=== PATIENT | female | born 1950 | race Caucasian/White ===

== ENCOUNTER 2016-09-20 18:31 | Emergency (ER) | payer MEDICARE ==
[~2016-09-20] VITALS: Ht 157.5 cm; Wt 50.8 kg
[~2016-09-20 18:31] MED LIST: BUDEPRION XL300 MG PO; GABAPENTIN300 MG PO; KEFLEX500 MG PO; LISINOPRIL-HCT1 EACH PO; MELOXICAM15 MG PO; METHOCARBAMOL750 MG PO; NORCO 5-325 TA1 EACH PO; OSTERA TABLET1 EACH PO; PAROXETINE HCL20 MG PO; STOOL SOFTENER100 MG PO
== END 2016-09-20 20:23 | disposition left against medical advice (07) ==
LOC: ED 18:31
DX: T14.91 Suicide attempt (principal); Z00.8 Encounter for other general examination; Z53.21 Procedure and treatment not carried out due to patient leaving prior to being seen by health care provider; I10 Essential (primary) hypertension; Z91.040 Latex allergy status; Z88.4 Allergy status to anesthetic agent; Z79.899 Other long term (current) drug therapy; Z98.890 Other specified postprocedural states
CPT/HCPCS: 80053; 80176; 81001; 84443; 85025; 99283; G0480